=== PATIENT | female | born 1995 | race Caucasian/White ===

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

== ENCOUNTER → 2021-01-06 | Day surgery (SDC) | payer BC ==
[~2021-01-06] MED LIST: Lactated Ringers 1,000 ML IV SCH; Lidocaine 1%/Sod Bicarbonate in NS 8.4% 1 ML Syringe IDERM PRN; Midazolam 1 MG/ML 2 ML SDV ONE; Ondansetron 4 MG/2 ML SDV IVPUSH PRN; Propofol 200 MG/20 ML SDV ONE; Sodium Chloride 0.9% 10 ML Syringe FLUSH PRN; fentaNYL 100 MCG/2 ML SDV ONE
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
--- NOTE | 2021-01-06 07:11 | PCM.PRNOTE ---
- Free Text/Narrative Note: Date: 01/06/2021 Procedure: diagnostic esophagogastroduodenoscopy Indication: weight loss, anorexia, bloating Endoscopist: Jordan Tellez MD Findings: normal findings. Detailed Report: The patient was taken to the endoscopy suite and placed in left lateral decubitus position. Timeout was performed and monitored anesthesia care was initiated. A bite-block was placed. The endoscope was inserted into the mouth and advanced to the duodenum with ease. The distal portion of the visualized small bowel appeared to be partially compressed extrinsically, but nothing that would limit passage of the scope. Endoscopic findings were grossly normal. No hiatal hernia was noted. Biopsies of duodenal, antral and esophageal mucosa were obtained for diagnostic purposes using cold forceps. Air was suctioned from the stomach prior to withdrawal of the scope. Patient tolerated the procedure well.
--- NOTE | 2021-01-06 07:50 | PCM48HPAN ---
Post Anesthesia Note - EVALUATION WITHIN 48HRS OF ANESTHETIC Vital Signs in Normal Range: Yes Patient Participated in Evaluation: Yes Respiratory Function Stable: Yes Airway Patent: Yes Cardiovascular Function Stable: Yes Hydration Status Stable: Yes Pain Control Satisfactory: Yes Nausea and Vomiting Control Satisfactory: Yes Mental Status Recovered: Yes
[2021-01-06 08:29] VITALS: BP 111/83; PULSE 71
== END | disposition home or self-care (01) ==
LOC: JD.SDS 06:32
PROVIDERS: ATTEND Surgery
DX: K29.50 Unspecified chronic gastritis without bleeding (principal); K31.89 Other diseases of stomach and duodenum; K25.9 Gastric ulcer, unspecified as acute or chronic, without hemorrhage or perforation; R63.0 Anorexia; R63.4 Abnormal weight loss
CPT/HCPCS: 43239; J2250; J2704; J3010; J7120; 00731